=== PATIENT | female | born 1960 | race Caucasian/White ===

== ENCOUNTER → 2016-12-26 | Outpatient (CLI) | payer OTHER, BC ==
--- NOTE | 2016-12-26 14:33 | MAMMOGRAPHY REPORT ---
BILATERAL DIGITAL DIAGNOSTIC MAMMOGRAM TOMOSYNTHESIS WITH CAD AND TARGETED LEFT ULTRASOUND: 7 CLINICAL HISTORY: Short interval follow-up of left breast masses. TECHNIQUE: Breast tomosynthesis in addition to standard 2D mammography was performed. Current study was also evaluated with a Computer Aided Detection (CAD) system. Bilateral CC and MLO 2-D and edel synthesis images were obtained. COMPARISON: Comparison is made to exams dated: 09/23/2016 ultrasound, 08/13/2016 mammogram, 6 ultrasound, 12/19/2015 mammogram, 11/09/2014 mammogram, and [facility] BREAST COMPOSITION: The tissue of both breasts is heterogeneously dense, which may obscure small ma sses. FINDINGS: Again noted are fluctuating round/oval obscured masses bilaterally, consistent with cysts . The largest masses in the left breast have decreased compared to the August 2016 exam. There a re no suspicious masses, calcifications, or areas of architectural distortion noted in either breast . Targeted ultrasound was performed of the area of the previously seen masses. In the left breast at 3:30, 4 cm from the nipple, again noted is an oval anechoic circumscribed mass with a thin internal septation, measuring 5 x 4 x 3 mm, consistent with a benign cyst. In the left breast at 7:00, 1 cm from the nipple, there is an oval circumscribed anechoic mass with a thin internal septation, measur ing 13 x 4 x 6 mm, also consistent with a benign cyst. In the left breast at 3:00, 4 cm from the ni pple, there is a round hypoechoic circumscribed 3 x 2 x 2 mm mass, which is decreased in size compar ed to the 08/13/2016 exam (previously measuring 6 x 5 x 7 mm), and is consistent with a benign cyst. Another circumscribed anechoic mass with thin internal septations is seen within the left breast at 3:00 periareolar region, measuring 9 x 7 x 11 mm, consistent with a cyst. No suspicious solid mass es were evident. IMPRESSION: ACR BI-RADS CATEGORY 2: BENIGN, TARGETED ULTRASOUND ACR BI-RADS CATEGORY 2: BENIGN Benign cysts seen within the left breast on ultrasound. There is no mammographic or targeted sonogr aphic evidence of malignancy. A 1 year screening mammogram is recommended. The patient has been dominique bally notified of the results. Approximately 10% of breast cancers are not detected with mammography. A negative mammographic repor t should not delay biopsy if a clinically suggestive mass is present. Catia Graves M.D. ah/:12/26/2016 11:54:45 Traveling Plant Operator: Crystal TERRAZAS)(Zoie), [facility] letter sent: Normal 1/2 BI-RADS Code: ACR BI-RADS Category 2: Benign Ultrasound BI-RADS: ACR BI-RADS Category 2: Benign
== END | disposition home or self-care (01) ==
LOC: C.MAMM 08:07
PROVIDERS: ATTEND Nurse Practitioner
DX: N64.89 Other specified disorders of breast (principal)

== ENCOUNTER → 2017-01-27 | Outpatient (CLI) | payer OTHER, BC | END | disposition home or self-care (01) | LOC: C.LABPBG 07:57 | PROVIDERS: ATTEND Family Medicine | DX: Z00.00 Encounter for general adult medical examination without abnormal findings (principal) ==

== ENCOUNTER → 2017-03-16 | Outpatient (CLI) | payer OTHER, BC ==
[2017-03-16 18:12] LABS: CHOLESTEROL/HDL RATIO 3.5; THYROID STIMULATING HORMONE 2.01 uIu/ml (0.300-4.500)
== END | disposition home or self-care (01) ==
LOC: C.LABPBG 15:37
PROVIDERS: ATTEND Physician Assistant
DX: E03.9 Hypothyroidism, unspecified (principal); E78.5 Hyperlipidemia, unspecified

== ENCOUNTER → 2018-01-22 | Outpatient (CLI) | payer OTHER, BC ==
--- NOTE | 2018-01-25 07:44 | MAMMOGRAPHY REPORT ---
BILATERAL DIGITAL SCREENING MAMMOGRAM TOMOSYNTHESIS WITH CAD: 01/22/2018 CLINICAL HISTORY: Routine screening. Patient has no complaints. TECHNIQUE: Breast tomosynthesis in addition to standard 2D mammography was performed. Current study was also evaluated with a Computer Aided Detection (CAD) system. COMPARISON: Comparison is made to exams dated: 12/26/2016 ultrasound, 12/26/2016 mammogram, 09/23/2016 aspiration, 09/23/2016 ultrasound, 08/13/2016 mammogram, and 12/19/2015 mammogram - [facility]. BREAST COMPOSITION: The tissue of both breasts is heterogeneously dense, which may obscure small mas ses. FINDINGS: No suspicious masses, calcifications, or areas of architectural distortion are noted in ei ther breast. There has been no significant interval change compared to prior exams. IMPRESSION: ACR BI-RADS CATEGORY 1: NEGATIVE There is no mammographic evidence of malignancy. A 1 year screening mammogram is recommended. The pa tient will receive written notification of the results. Approximately 10% of breast cancers are not detected with mammography. A negative mammographic report should not delay biopsy if a clinically suggestive mass is present. Catia Graves M.D. /:01/22/2018 14:05:46 Inventory Coordinator: Eugenie SMITH(Keisha)(Zoie), [facility] letter sent: Normal 1/2 BI-RADS Code: ACR BI-RADS Category 1: Negative
== END | disposition home or self-care (01) ==
LOC: C.MAMM 10:17
PROVIDERS: ATTEND Family Medicine
DX: Z12.31 Encounter for screening mammogram for malignant neoplasm of breast (principal)